=== PATIENT | male | born 1965 | race Caucasian/White ===

== ENCOUNTER → 2017-09-11 | Day surgery (SDC) | payer BC ==
[~2017-09-11] MED LIST: EDARBYCLOR 40-1 EACH PO; FENTANYL CITRATE/PF 100MCG/2 ML INJ ONE; FLONASE; LIDOCAINE HCL 2% LOCAL INJ 5 ML SDV VIAL INJ ONE; METOPROLOL TART50 MG PO; OMEPRAZOLE40 MG PO; PROPOFOL IV EMULSION 10 MG/ML 50 ML VIAL ONE; ZYRTEC10 M3 PO
== END | disposition home or self-care (01) ==
LOC: OR 07:27
PROVIDERS: ATTEND Internal Medicine Gastroenterology
DX: Z12.11 Encounter for screening for malignant neoplasm of colon (principal); K57.30 Diverticulosis of large intestine without perforation or abscess without bleeding; K64.8 Other hemorrhoids; K21.9 Gastro-esophageal reflux disease without esophagitis; K44.9 Diaphragmatic hernia without obstruction or gangrene; G47.33 Obstructive sleep apnea (adult) (pediatric); I10 Essential (primary) hypertension; I49.9 Cardiac arrhythmia, unspecified; E66.01 Morbid (severe) obesity due to excess calories; Z01.810 Encounter for preprocedural cardiovascular examination; Z68.41 Body mass index [BMI] 40.0-44.9, adult; Z98.84 Bariatric surgery status; Z87.891 Personal history of nicotine dependence; Z80.0 Family history of malignant neoplasm of digestive organs
CPT/HCPCS: 45378; 93005; J2001

== ENCOUNTER → 2021-04-05 | Outpatient (CLI) | payer BC ==
[~2021-04-05] MED LIST changes: -FENTANYL CITRATE/PF 100MCG/2 ML INJ ONE; -LIDOCAINE HCL 2% LOCAL INJ 5 ML SDV VIAL INJ ONE; -PROPOFOL IV EMULSION 10 MG/ML 50 ML VIAL ONE; +REGADENOSON 0.4 MG/5 ML SYR IV ONE
== END ==
LOC: NM 08:04
PROVIDERS: ATTEND Internal Medicine
DX: R07.9 Chest pain, unspecified (principal)
CPT/HCPCS: 78452; 93017; A9502; J2785

== ENCOUNTER → 2021-04-23 | Day surgery (SDC) | payer BC ==
[2021-04-20 10:20] LABS: BASOPHILS % 0.6 % (0.0-1.0); EOSINOPHILS # (AUTO) 0.2 (0.0-0.4); EOSINOPHILS % 2.4 % (0.0-6.0); HEMATOCRIT 38.4 % (38.2-49.6); HEMOGLOBIN 13.1 g/dL (14.0-18.0); LYMPHOCYTES % 28.7 % (18.0-39.1); MEAN CORPUSCULAR HEMOGLOBIN 31.8 pg (28-32); MEAN CORPUSCULAR HGB CONC 34.1 g/dL (31-35); MEAN CORPUSCULAR VOLUME 93.2 fL (81-99); MONOCYTES # (AUTO) 0.6 (0.2-0.8); MONOCYTES % 8.9 % (4.4-11.3); NEUTROPHILS # (AUTO) 4.1 (2.1-6.9); NEUTROPHILS % 59.1 % (38.7-80.0); PLATELET COUNT 208 x10e3/uL (140-360); RED BLOOD COUNT 4.12 x10e6/uL (4.3-5.7); RED CELL DISTRIBUTION WIDTH 12.5 % (11.7-14.4)
[2021-04-20 10:28] LABS: INR 0.86; PROTHROMBIN TIME 12.1 seconds (11.9-14.5)
[2021-04-20 10:35] LABS: ALBUMIN 3.5 g/dL (3.5-5.0); ALBUMIN/GLOBULIN RATIO 1.1 (0.8-2.0); ANION GAP 12.4 mmol/L (8-16); CALCIUM 8.2 mg/dL (8.4-10.2); CREATININE, SERUM 0.77 mg/dL (0.72-1.25); POTASSIUM 3.4 mmol/L (3.5-5.1)
[~2021-04-23] VITALS: Ht 177.8 cm; Wt 154.2 kg
[~2021-04-23] MED LIST changes: +ADDERALL 30 MG30 MG PO; +AMIODARONE HCL200 MG PO; +ASPIRIN EC81 MG PO; +EDARBYCLOR 40-1 EAC1 PO; +FENTANYL CITRATE/PF 100MCG/2 ML INJ ONE; +HEPARIN SOD/SOD CHLORIDE 2,000 ML ONE; +IBUPROFEN200 MG PO; +IOPAMIDOL 370 MG/ML 200 ML INFUS..BTL INJ ONE; +LIDOCAINE HCL 2% LOCAL 20 ML VIAL ONE; +METOPROLOL TAR100 MG PO; +MIDAZOLAM HCL 2 MG/2 ML VIAL ONE; +MONTELUKAST SOD10 MG PO; +ONDANSETRON HCL INJ 2MG/ML 2ML 2 MG/ML VIAL ONE; -REGADENOSON 0.4 MG/5 ML SYR IV ONE; +SODIUM CHLORIDE 0.9% 1000ML 1,000 ML ONE; +VERAPAMIL HCL 2.5 MG/ML 2 ML VIAL ONE
[2021-04-23 09:20] VITALS: BP 140/84
[2021-04-23 12:40] VITALS: BP 139/92
[2021-04-23 12:55] VITALS: BP 121/79
[2021-04-23 13:08] VITALS: BP 124/90
[2021-04-23 13:41] VITALS: BP 138/98
[2021-04-23 13:55] VITALS: BP 135/86
== END | disposition home or self-care (01) ==
LOC: CATH LAB 08:50
PROVIDERS: ATTEND Internal Medicine Cardiovascular Disease
DX: I25.10 Atherosclerotic heart disease of native coronary artery without angina pectoris (principal); R94.39 Abnormal result of other cardiovascular function study; I49.3 Ventricular premature depolarization; Z01.812 Encounter for preprocedural laboratory examination; Z20.822 Contact with and (suspected) exposure to COVID-19; Z79.82 Long term (current) use of aspirin; Z79.899 Other long term (current) drug therapy; Z68.42 Body mass index [BMI] 45.0-49.9, adult
CPT/HCPCS: 36415 ×2; 75605; 80053; 85025; 85610; 93458; C1769; J2001; J2250; J2405; J3010; J7030; Q9967; U0002; 99152; 99153